=== PATIENT | male | born 1945 | race Caucasian/White ===

== ENCOUNTER 2017-12-23 11:07 | Emergency (ER) | payer MEDICARE, MEDICAID ==
[~2017-12-23] VITALS: Ht 177.8 cm; Wt 67.0 kg
[~2017-12-23 11:07] MED LIST: ADVA100A; ST JTAB PO
[2017-12-23 11:15] VITALS: BP 191/96; PULSE 70; RESP 18; TEMP 97.6; O2SAT 94
[2017-12-23 11:54] LABS: AUTOMATED NEUTROPHIL # 10.4 TH/MM3 (1.8-7.7); BASOPHIL # 0.1 TH/MM3 (0-0.2); BASOPHIL % 0.9 % (0.0-2.0); EOSINOPHIL # 0.1 TH/MM3 (0-0.4); EOSINOPHIL % 0.6 % (0.0-4.0); HEMATOCRIT 44.5 % (39.0-51.0); HEMOGLOBIN 15.4 GM/DL (13.0-17.0); LYMPH % 12.1 % (9.0-44.0); LYMPHOCYTE # 1.6 TH/MM3 (1.0-4.8); MEAN CELL VOLUME 88.1 FL (80.0-100.0); MEAN CORPUSCULAR HEMOGLOBIN 30.4 PG (27.0-34.0); MEAN CORPUSCULAR HGB CONC 34.5 % (32.0-36.0); MEAN PLATELET VOLUME 8.4 FL (7.0-11.0); MONO % 7.4 % (0.0-8.0); PLATELET COUNT 470 TH/MM3 (150-450); RED BLOOD COUNT 5.05 MIL/MM3 (4.50-5.90); RED CELL DISTRIBUTION WIDTH 15.2 % (11.6-17.2); WHITE BLOOD COUNT 13.2 TH/MM3 (4.0-11.0)
[2017-12-23 12:12] LABS: PROTHROMBIN TIME - PATIENT 10.5 SEC (9.8-11.6)
[2017-12-23 12:20] LABS: ALKALINE PHOSPHATASE 103 U/L (45-117); TOTAL BILIRUBIN ADULT 2.2 MG/DL (0.2-1.0); TOTAL PROTEIN 7.6 GM/DL (6.4-8.2)
[2017-12-23 12:22] LABS: ALBUMIN 3.3 GM/DL (3.4-5.0); ALT (GPT) 17 U/L (12-78); AST (GOT) 33 U/L (15-37); BLOOD UREA NITROGEN 13 MG/DL (7-18); CALCIUM 9.3 MG/DL (8.5-10.1); CHLORIDE 104 MEQ/L (98-107); CREATININE 1.45 MG/DL (0.60-1.30); GLOMERULAR FILTRATION RATE 48 ML/MIN (>89); GLUCOSE,RANDOM 86 MG/DL (74-106); SODIUM (NA) 136 MEQ/L (136-145)
== END 2017-12-23 13:00 | disposition left against medical advice (07) ==
LOC: NETRI 11:07
DX: R04.0 Epistaxis (principal); Z53.21 Procedure and treatment not carried out due to patient leaving prior to being seen by health care provider
CPT/HCPCS: 80053; 85025; 85610; 85730; 86850; 86900; 86901; 99281

== ENCOUNTER 2018-03-03 09:47 | Day surgery (SDC) | payer MEDICARE, MEDICAID ==
[~2018-03-03] VITALS: Ht 177.8 cm; Wt 67.1 kg
[2018-03-03] MEDS ORDERED: IOHEXOL 350 MG/ML 100 ML BTL (for Cath Lab) OTHER ONE (09:48)
[2018-03-03 10:35] VITALS: BP 194/107; PULSE 73; RESP 18; TEMP 97.9; O2SAT 96
[2018-03-03] MEDS ORDERED: ASPI81TA23 PO (10:40)
[2018-03-03] MEDS ORDERED: METO1TAB42 PO (10:40)
[2018-03-03] MEDS ORDERED: SACU1TAB PO (10:40)
[2018-03-03 10:41] LABS: AUTOMATED NEUTROPHIL # 12.2 TH/MM3 (1.8-7.7); BASOPHIL # 0.1 TH/MM3 (0-0.2); BASOPHIL % 0.5 % (0.0-2.0); EOSINOPHIL % 0.3 % (0.0-4.0); HEMATOCRIT 43.5 % (39.0-51.0); HEMOGLOBIN 14.8 GM/DL (13.0-17.0); LYMPH % 9.1 % (9.0-44.0); LYMPHOCYTE # 1.4 TH/MM3 (1.0-4.8); MEAN CELL VOLUME 88.1 FL (80.0-100.0); MEAN CORPUSCULAR HEMOGLOBIN 29.9 PG (27.0-34.0); MEAN CORPUSCULAR HGB CONC 33.9 % (32.0-36.0); MEAN PLATELET VOLUME 7.9 FL (7.0-11.0); MONO % 8.5 % (0.0-8.0); MONOCYTE # 1.3 TH/MM3 (0-0.9); NEUT % 81.6 % (16.0-70.0); PLATELET COUNT 203 TH/MM3 (150-450); RED BLOOD COUNT 4.94 MIL/MM3 (4.50-5.90); RED CELL DISTRIBUTION WIDTH 15.3 % (11.6-17.2)
[2018-03-03 10:51] LABS: INTERNATIONAL NORMALIZED RATIO 1.1 RATIO; PROTHROMBIN TIME - PATIENT 10.9 SEC (9.8-11.6)
[2018-03-03 10:59] LABS: BICARBONATE 28.3 MEQ/L (21.0-32.0); CREATININE 1.46 MG/DL (0.60-1.30)
[2018-03-03] MEDS ORDERED: MIDAZOLAM HCL 2 MG/2 ML VIAL ONE (11:21)
[2018-03-03] MEDS ORDERED: HEPARIN-NS/PF INJ 1,500 ML ONE (11:21)
[2018-03-03] MEDS ORDERED: SODIUM CHLOR 0.9% 1000 ML INJ 1,000 ML IV SCH (12:55)
--- NOTE | 2018-03-03 12:57 | CATHPROC ---
[facility] HIS Report Study Information Study Number Admission Scheduled Start Study Start [id number] Mar 03 2018 9:47AM 03/03/2018 Mar 03 2018 11:12AM [place] [facility] Endovascular Study Admit Source Facility Department Other [facility] - Soft Work Wrapper Layer And Examiner Physician and Clinical Staff Initial Harry Rosenberg Marine Engineer Cpvecrandell Plummer RN, Myesha Barrientos RN Recorder Amparo Soriano,RT(R) (BS) Scrub James Hunter,RT(R) Procedures Performed Procedure Location (Site) Vessel Name Wire insertion Fem Art (right) Femoral Art Equipment Time Wheat Combine Driver Description Size Mfg Part Number Used/Scraped [id number] 11:19 ANGIO-DYNAMICS OMNI FLUSH 65CM CATHETER FR 5 Used *[id number] 11:41 ANGIO-DYNAMICS OMNI FLUSH 65CM CATHETER FR 5 Used *[id number] 11:57 [employer]otag MEDICAL WIRE, NITONOL 80CM 80CM Used *[id number] INTRODUCER SET, 11:19 [employer] FR 5 [id number] *[id number] Used MICROPUNCTURE STIFF [id number] *[id number] CATHETER, FR5 TRAILBLAZER [id number] 12:16 [employer] 135CM Used .035 *[id number] 11:16 MALLINCKRODT SYRINGE, ANGIOMAT 150ML 150ML [id number] Used [id number] 11:16 Neuravi BLANKET,WARM AIR CCL * Used *[id number] 11:16 Neuravi PACK, CCL CUSTOM * Used *[id number] 11:16 Skedo PACER PEN, SKIN DUAL W/ RULER * Used *[id number] 11:19 NanoVasc MEDICAL SHEATH, FR5.5 PRELUDE 11CM FR 5 [id number] Used [id number] 11:16 [employer]asc MEDICAL WIRE, EXCHANGE 260CM 3MMJ 260CM Used *[id number] 11:16 NAMIC MANIFOLD, 4 PORT * Used *[id number] 11:16 NAMIC TUBING, HIGH PRESSURE 48" 48" Used *[id number] 11:40 NAMIC TUBING, HIGH PRESSURE 48" 48" Used *[id number] TUBING, PRESSURE INJECTION [id number] 11:16 NAMIC 72" Used 72" *[id number] 11:16 NYCOMED OMNIPAQUE, 300 MG, 150ML 150ML [id number] Used [id number] 11:16 TERUMO MEDICAL SHEATH, FR5 TERUMO (10CM) FR 5 Used *[id number] WIRE, ANGLE GLIDE STIFF .035 [id number] 12:27 TERUMO MEDICAL/NITIN 260CM Used 260CM *[id number] WIRE, ANGLED GLIDE .035 [id number] 12:11 TERUMO MEDICAL/NITIN 260CM Used 260CM *[id number] History: Current Medications Medication Dosage/Unit Route Frequency Last Date/Time Taken Beta Juan ASA History: Allergies Allergy Reaction sodium hypochlorite solution Anaphylaxis Labs Hgb (g/dl) Hct (%) WBC (l/cumm) Platelets (thousands) 11.60-17.00 35.00-51.00 4.00-11.00 150.00-450.00 14.8 46.5 15 203 Glucose (mg/dl) BUN (mg/dl) Creatinine (mg/dl) BUN:Creatinine (1:x) 74.00-106.00 7.00-18.00 0.50-1.30 10.00-20.00 90 12 1.4 8.6 Na (meq/l) K (meq/l) 136.00-145.00 3.50-5.10 139 3.4 INR (PTT:PT) 0.90-1.10 1.1 CPK-MB (ng/ML) 0.50-3.60 Not Drawn Medication Medication Total Dose (Bolus/Oral) Medication Total Dosage/Unit 1% XYLOCAINE 15 mL FENTANYL 100 mcg VERSED 1 mg Medications (Bolus/Oral) Medication Time Given Dosage/Unit Administered By Reason VERSED 03/03/2018 11:48:28 AM 1 mg Myesha Valentin 1 mg VERSED given in lab by Myesha Valentin, SOPHIE via Peripheral IV. Ordered by Harry Norman 1% XYLOCAINE 03/03/2018 11:49:27 AM 15 mL Harry Norman 15 mL 1% XYLOCAINE given in lab by Harry Norman in Right Groin via Subcutaneous. Ordered by Harry Ennis FENTANYL 03/03/2018 11:49:32 AM 50 mcg Woo Plummer RN 50 mcg FENTANYL given in lab by Woo Plummer RN via Peripheral IV. Ordered by Harry Norman FENTANYL 03/03/2018 11:58:40 AM 50 mcg Woo Plummer RN 50 mcg FENTANYL given in lab by Woo Plummer RN via Peripheral IV. Ordered by Harry Norman Medication (Drip) Medication Time Given Dosage/Unit Concentration/Unit Diluent (ml) Solution IV Solutions 03/03/2018 11:12:49 AM 0 mL (IV) 500 NaCl .9 IV Solutions given in lab by Woo Plummer RN in Left Antecubital via Peripheral IV. Pump/Drip Flow = 30 ml/hr using NaCl .9. Initial Case Assessment Cardiovascular HR Rhythm NIBP 68 reg 171/108 Edema Present Skin color Skin None Normal Warm Dry Circulatory - Right Pulses Dorsalis Pedis Femoral 1 1 Scale (0,1,2,3,4,d) Circulatory - Left Pulses Dorsalis Pedis Femoral 1 1 Scale (0,1,2,3,4,d) Circulatory - Lower Extremities Color Lower Right Color Lower Left Normal Normal Neurological State Oriented to time-place- Alert Moves all extremities person Respiration - General Respiration Rate SpO2 (%) (B/min) 20 96 Chronological Log Time Study Chronological Log 11:10:27 Patient arrived via Bed. 11:10:33 Patient Name, D.O.B, / Armband Verified By R.N. 11:12:36 Consent signed by the physician and the patient and verified by the Soft Work Wrapper Layer And Examiner staff. 11:12:37 Pre-op and post- op instructions given; patient acknowledges understanding of instructions. 11:12:38 Verbal Stimulation=2 Physical Stimulation=2 Airway=2 Respiration=2 TOTAL=8. (0=absent, 1=li mited, 2=present) 11:12:39 Presedation assessment performed by Soft Work Wrapper Layer And Examiner RN. 11:12:42 Patient has been NPO for More than 6Hrs. 11:12:43 Skin Breakdown none per pt 11:12:43 Patient Warmer Placed on the Table. 11:12:48 Yvette Prominences Protected 11:12:48 A # 20 IV was noted in the Antecubital (left). Grade = 0 IV Solutions given in lab by Woo Plummer RN in Left Antecubital via Peripheral IV. Pump/Drip F low = 30 ml/hr using NaCl 11:12:49 .9. 11:12:51 History and physical on the chart or being dictated. Assessment: Initial Case, HR=68 BPM, Rhythm=reg, KTCN=632/108 mmhg, Edema=None, Color=Normal, S kin = Warm, Dry Right Pulses: Harsh Ped=1, Femoral=1 Left Pulses: Harsh Ped=1, Femoral=1 11:12:52 Lower Right Extremities: Color=Normal Lower Left Extremities: Color=Normal Neurological: State=Alert, Ox3, RECIO Respiration: Resp=20 B/min, SpO2=96 % Vitals capture started with the following parameters, Patient=Adult, Interval=5 min, Initial Pr uzcrqf=228 mmHg, 11:16:33 Deflation Rate=5 mmHg, Cuff placed on Right Ankle 11:17:45 JFZF=248/108 mmhg, SpO2=97.0 %, Pain=0, Yuli=10, Sepulveda=2 11:22:14 HR=68 bpm, AQHU=550/109 mmhg, SpO2=95.0 %, Resp=24 B/min, Pain=0, Yuli=10, Espulveda=2 11:24:26 Reference ECG taken 11:27:15 HR=68 bpm, LIPN=724/109 mmhg, SpO2=96.0 %, Resp=25 B/min, Pain=0, Yuli=10, Sepulveda=2 11:30:01 Bilateral groins prepped with 2% chlorhexidine, and draped after a 3 minute waiting time. 11:32:16 HR=68 bpm, FYYE=698/111 mmhg, SpO2=97.0 %, Resp=22 B/min, Pain=0, Yuli=10, Sepulveda=2 11:32:58 MD paged 11:34:42 Pressure channel 1 zeroed. 11:37:15 HR=70 bpm, HFHH=057/111 mmhg, SpO2=97.0 %, Resp=16 B/min, Pain=0, Yuli=10, Sepulveda=2 11:38:44 MD responded 11:42:14 HR=67 bpm, BIZD=373/113 mmhg, SpO2=95.0 %, Resp=32 B/min 11:47:13 HR=64 bpm, SHNZ=158/109 mmhg, SpO2=95.0 %, Resp=20 B/min Time Out. Correct patient, correct procedure, correct physician, labs, allergies, and equipment verified with pathology lab technician 11:47:26 team present. Fire risk assesment completed (see hard stop sheet for coding). Time Out Conc urred by MD and individual staff in procedure. 11:48:28 1 mg VERSED given in lab by Myesah Valentin RN via Peripheral IV. Ordered by Mathew Norman 11:49:26 Case Start 15 mL 1% XYLOCAINE given in lab by Harry Norman in Right Groin via Subcutaneous. Ordered by Emerson 11:49:27 Harry Byers 11:49:32 50 mcg FENTANYL given in lab by Woo Plummer RN via Peripheral IV. Ordered by Mathew Norman 11:52:14 HR=68 bpm, ZFDQ=146/105 mmhg, SpO2=93.0 %, Resp=57 B/min 11:57:17 HR=70 bpm, CDSY=583/109 mmhg, SpO2=94.0 %, Resp=15 B/min 11:58:40 50 mcg FENTANYL given in lab by Woo Plummer RN via Peripheral IV. Ordered by Mathew Norman 11:59:50 Access site was Right Femoral Artery. A INTRODUCER SET, MICROPUNCTURE STIFF FR 5 was advanced into the Fem Art (right) using the Perc utaneous 12:00:00 technique. A SHEATH, FR5 TERUMO (10CM) FR 5 was exchanged in the Fem Art (right). This was necessary in or zhang to 12:00:09 accomodate a larger catheter. 12:02:14 HR=71 bpm, OWCW=609/119 mmhg, SpO2=93.0 %, Resp=20 B/min 12:02:15 Manual injection through sheath Recorded Pressure: FA, HR=72, Condition=Condition 1 12:04:40 (Femoral Artery) FA 108/78/95 12:04:49 Manual Injection via sheath of right leg. 12:07:17 HR=71 bpm, EENP=122/114 mmhg, SpO2=94.0 %, Resp=27 B/min Manual injection via sheath of right leg 12:07:47 A OMNI FLUSH 65CM CATHETER FR 5 was advanced over a wire. OMNIPAQUE, 300 MG, 150ML 150ML was us ed for 12:09:09 injections. 12:10:02 A WIRE, ANGLED GLIDE .035 260CM 260CM was inserted via Fem Art (right). 12:12:16 HR=71 bpm, BBIK=537/112 mmhg, SpO2=95.0 %, Resp=27 B/min 12:12:43 omni flush Catheter was removed A LORRAINE INFINITI CATHETER FR 5 was advanced over a wire. OMNIPAQUE, 300 MG, 150ML 150ML was used for ::51 injections. 12:13:16 Wire removed Recorded Pressure: Ao, HR=69, Condition=Condition 1 12:13:38 (Aorta) Ao 201/83/134 12:15:33 manual injection of left illiac/ SFA 12:16:25 A WIRE, ANGLED GLIDE .035 260CM 260CM was inserted via Fem Art (right). 12:17:17 HR=67 bpm, LIMB=048/105 mmhg, SpO2=94.0 %, Resp=20 B/min After removing the current catheter a CATHETER, FR5 TRAILBLAZER .035 135CM was advanced over a WIRE, ANGLED 12:17:53 GLIDE .035 260CM 260CM. manual injection of left leg 12:20:30 12:22:18 HR=70 bpm, EOYZ=316/109 mmhg, SpO2=92.0 %, Resp=19 B/min 12:23:17 Through a CATHETER, FR5 TRAILBLAZER .035 135CM, The SFA (left) was injected with 10 cc's of contrast. 12:27:17 HR=69 bpm, XDJN=432/109 mmhg, SpO2=95.0 %, Resp=19 B/min 12:27:51 A WIRE, ANGLE GLIDE STIFF .035 260CM 260CM was inserted via Fem Art (right). 12:29:29 Wire removed 12::32 Catheter was removed 12::51 A WIRE, ANGLE GLIDE STIFF .035 260CM 260CM was inserted via Fem Art (right). A OMNI FLUSH 65CM CATHETER FR 5 was advanced over a wire. OMNIPAQUE, 300 MG, 150ML 150ML was us ed for 12:31:23 injections. 12:32:20 HR=71 bpm, IZSU=871/97 mmhg, SpO2=95.0 %, Resp=21 B/min, Pain=0, Yuli=10, Sepulveda=2 12:34:11 Catheter was removed 12:34:12 Wire removed 12:36:10 Case End (Physician broke scrub) 12:37:21 HR=69 bpm, KLIZ=245/110 mmhg, SpO2=95.0 %, Resp=23 B/min, Pain=0, Yuli=10, Sepulveda=2 12:37:47 Sheath removed; pressure applied to access site. 12:42:20 HR=69 bpm, ZXNO=401/106 mmhg, SpO2=94.0 %, Resp=19 B/min, Pain=0, Yuli=10, Sepulveda=2 12:44:07 Catheter(s) removed without difficulty 12:44:14 No case complications noted. 12:44:16 Bedside Report will be given. 12:47:22 HR=69 bpm, XKZB=875/99 mmhg, SpO2=92.0 %, Resp=18 B/min, Pain=0, Yuli=10, Sepulveda=2 12:51:56 Sterile dressing applied to site 12:52:21 SERC=789/110 mmhg, Pain=0, Yuli=10, Sepulveda=2 12:52:29 Vitals capture stopped. 12:54:30 Patient moved to [facility] End Study - Contrast Media Used In Study Contrast Total Opened (mL) Total Used (mL) Total Wasted (mL) Omnipaque 100 100 0 End Study - Maximum Contrast Load Max Contrast Load (mL) 239.6 End Study - Radiation Exposure Fluoro Time (minutes) 8.4 End Study - Sheaths Sheaths Pulled By Sheath Hold Time (min) James Hunter End Study - Patient Disposition Complications Transferred To Interventional Outcome No Soft Work Wrapper Layer And Examiner Holding No attempt made
[2018-03-03] MEDS ORDERED: oxyCODONE/ACETAMINOPHEN 5 MG/325 MG TAB PO PRN ×2 (13:00)
[2018-03-03] MEDS ORDERED: MISC INFORMATION XX ONE (13:00)
[2018-03-03] MEDS: hydrALAZINE HCL 20 MG/ML VIAL IV PUSH PRN ×2 (14:46→15:50)
--- NOTE | 2018-03-03 15:03 | MA ---
cc: Harry Norman DO DATE: 03/03/2018 PROCEDURE: Bilateral peripheral angiogram, moderate sedation 48 minutes, ultrasound-guided access, second order angiography. PREOPERATIVE DIAGNOSIS: Bilateral claudication and rest pain, abnormal CTA and REFUGIO. POSTOPERATIVE DIAGNOSIS: Severe bilateral peripheral artery disease, 2-vessel runoff bilaterally. MEDICATIONS: Versed 1 mg, fentanyl 100 mcg. CONTRAST USED: 100 mL FLUOROSCOPY TIME: 8.7 minutes. SEDATION: Moderate sedation 48 minutes. FRAILTY SCORE: 4. ESTIMATED BLOOD LOSS: 20 mL PROCEDURAL SUMMARY: Lawrence Doty is a pleasant 73-year-old male who sees my partner, Dr. Mcgovern in the office and was noted to have significant symptoms of claudication with possible rest pain. He states that he can only walk about 50 yards at a slow pace at most. At night, his legs will start hurting and he has to get up and walk around to make them feel better. He underwent REFUGIO and CTA which were both abnormal and so he was recommended peripheral angiogram. Risks, benefits and alternatives were explained to him and he consented to such. He was brought to the lab and prepped in the usual sterile fashion. The right femoral artery was accessed using a modified Seldinger technique and placement of a 5-Upper Sorbian slender sheath with ultrasound-guidance. This is easily aspirated and flushed. Angiogram was done of the right lower extremity with runoff to the distal portion. DSA was used to reevaluate the distal portion of the right lower extremity. An Omniflush catheter was advanced over a Glidewire, although there was difficulty at the proximal common iliac on the right. The Glidewire was used, but there was difficulty at the proximal right common iliac. The Glidewire was able to pass, but I was unable to thread the Omniflush past and so an IM catheter was advanced to the aorta. This was pulled back to sit on the bifurcation and angiogram was done of the left iliac and common femoral artery. A wire was advanced and the catheter was exchanged for a TrailBlazer. Trailblazer was used for selective angiography of the left lower extremity and DSA was used in the distal portion for further information. As there was a known disease in the right proximal iliac, the TrailBlazer was pulled back and exchanged for a pigtail, which was used for nonselective angiography of bilateral iliacs. The pigtail was removed over a J wire. Sheath was removed and pressure was held for hemostasis. The patient left the cathead worker cardiovascularly stable. FINDINGS: Right lower extremity: Right common iliac has a proximal stenosis of 90% with a significant gradient of 80 across it. The rest of the iliac is diffusely diseased of around 30% and overall small. The common femoral artery is patent with 40-50% disease in the proximal portion. The SFA is patent, but the right profunda is occluded. SFA has abthalgj-fo-bkzxxe disease of 80% in the mid portion for a focal lesion. Distally after the popliteal, the right anterior tibial is patent with diffuse 30% disease to the foot. The TPT trunk is 100% occluded ostially and there appears to be bridging collaterals to the actual trunk. The right peroneal is 100% occluded in the proximal portion. The right posterior tibial appears to have runoff albeit slow to the distal foot. Left lower extremity: Left common iliac with 50% stenosis. Left external iliac with 90% stenosis with pre and post-stenotic dilatation. Left common femoral artery is patent. Profunda is patent and supplies distal collaterals to the SFA. Left SFA is 100% occluded ostially and reconstitutes at the adductor canals and reconstitutes Finesse's canal. Distally, there is 2-vessel runoff with the left posterior tibial and peroneal arteries. Left anterior tibial artery appears to be 100% occluded in the proximal portion. IMPRESSION: 1. Bilateral claudication. 2. Probable rest pain with pain at night bilaterally. 3. Severe bilateral peripheral artery disease with significant disease as above and 2-vessel runoff bilaterally. 4. Tobacco abuse. RECOMMENDATIONS: 1. Mr. Doty appears to have significant bilateral peripheral artery disease. My major concern is his left SFA is 100% occluded ostially and has very little options from an endovascular standpoint without a definite surgical backup. 2. I will have him see Dr. Butt in the outpatient office for further considerations of intervention for revascularization. 3. I spoke to him for greater than 3 minutes about tobacco cessation. 4. He will continue on aspirin therapy. 5. 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 Mcgovern or his primary care physician. 6. He will be discharged home today with a plan to followup with Dr. Butt in the office. Thank you for allowing me to see Lawrence Doty. If there are any questions, please do not hesitate to call. Harry Norman DO VGP/TL , 02:24 PM , 03:02 PM
--- NOTE | 2018-03-04 19:39 | EKG ---
Date Performed: 03/03/2018 Time Performed: 10:36:38 PTAGE: 73 years EKG: Sinus arrhythmia. Inferior infarct - age undetermined LVH with secondary repolarization abn ormality Anterolateral changes secondary to LVH versus ischemia Clinical correlation is recommended A bnormal ECG PREVIOUS TRACING : 08/14/2015 15.49 When compared to prior EKG,patient now has LVH and ST su es DOCTOR: Antonella Mccurdy Interpretating Date/Time 03/04/2018 19:38:19
== END 2018-03-03 09:48 | disposition home or self-care (01) ==
LOC: HDOC 09:47 → HDIC 09:48 → HDOC 09:48 → HDIC 09:54 → HDOC 17:00
PROVIDERS: ATTEND Nuclear Medicine Nuclear Cardiology
DX: I73.9 Peripheral vascular disease, unspecified (principal); I77.1 Stricture of artery; Z01.818 Encounter for other preprocedural examination
CPT/HCPCS: 36246; 75716; 80048; 85025; 85610; 93005; 99152; 99153; C1751; C1769; C1893; J0360; J1644; J2250; J3010; Q9967